=== PATIENT | male | born 1970 | race Caucasian/White ===

== ENCOUNTER 2024-05-22 17:54 | Emergency (ER) | payer SELFPAY ==
[~2024-05-22] VITALS: Ht 172.7 cm; Wt 73.0 kg
[2024-05-22 17:59] VITALS: O2SAT 99
[2024-05-22] MEDS: LIDOCAINE HCL 1% 20ML VIAL INFIL ONE (18:27)
[2024-05-22] MEDS ORDERED: IBUP-2028 MT (20:17)
[2024-05-22] MEDS ORDERED: AMOX1TAB16 MT (20:17)
[2024-05-22 20:52] VITALS: BP 145/90; PULSE 79; RESP 18; TEMP 37.11408; O2SAT 99
[2024-05-22] MEDS: ACETAMINOPHEN 500MG TABLET PO ONE (20:52)
[2024-05-22] MEDS: KETOROLAC 30MG/ML VIAL IM ONE (20:52)
== END 2024-05-22 20:54 | disposition home or self-care (01) ==
LOC: ER 17:54
DX: S02.2XXA Fracture of nasal bones, initial encounter for closed fracture (principal); Z98.890 Other specified postprocedural states; W25.XXXA Contact with sharp glass, initial encounter; Y93.89 Activity, other specified; Y92.89 Other specified places as the place of occurrence of the external cause; Y99.8 Other external cause status
CPT/HCPCS: 99285; 70450; 70486; 12015; 96372; J1885; J3490

== ENCOUNTER 2024-05-29 09:50 | Emergency (ER) | payer SELFPAY ==
[~2024-05-29] VITALS: Ht 170.2 cm; Wt 79.0 kg
[~2024-05-29 09:50] MED LIST: AMOX1TAB16 MT; IBUP-2028 MT
[2024-05-29 10:07] VITALS: O2SAT 98
[2024-05-29 11:41] VITALS: BP 140/70; PULSE 61; RESP 16; TEMP 36.83628; O2SAT 98
== END 2024-05-29 12:09 | disposition home or self-care (01) ==
LOC: ER 10:03
DX: S01.81XD Laceration without foreign body of other part of head, subsequent encounter (principal); Z48.02 Encounter for removal of sutures; X58.XXXD Exposure to other specified factors, subsequent encounter
CPT/HCPCS: 99281; Z7610 ×2

== ENCOUNTER 2024-06-05 16:23 | Emergency (ER) | payer SELFPAY ==
[~2024-06-05] VITALS: Ht 157.5 cm; Wt 74.8 kg
[2024-06-05 16:54] VITALS: O2SAT 96
[2024-06-05 18:06] VITALS: BP 133/70; PULSE 72; RESP 16; TEMP 36.66960; O2SAT 96
== END 2024-06-05 18:37 | disposition home or self-care (01) ==
LOC: ER 16:23
DX: S01.21XA Laceration without foreign body of nose, initial encounter (principal); Z48.00 Encounter for change or removal of nonsurgical wound dressing; X58.XXXA Exposure to other specified factors, initial encounter; Y93.89 Activity, other specified; Y92.89 Other specified places as the place of occurrence of the external cause; Y99.8 Other external cause status
CPT/HCPCS: 12011; 99282